=== PATIENT | male | born 1975 | race Caucasian/White ===

== ENCOUNTER 2018-01-23 15:25 | Inpatient (IN) | payer MEDICAID, OTHER ==
[2018-01-23] MEDS: SOD CHLORIDE 0.9% 1,000 ML IV ×2 (16:26→18:33)
[2018-01-23] MEDS: ONDANSETRON 4 MG INJ IV (16:26)
[2018-01-23] MEDS: morphine 4 MG/ML VIAL IV (16:26)
[2018-01-23 16:29] LABS: ADD MAN DIFF? NO
[2018-01-23 16:35] LABS: BASOPHIL # 0.1 10^3/ul (0.0-0.1); BASOPHILS % 0.5 % (0.0-2.0); EOSINOPHILS # 0.1 10^3/ul (0.0-0.5); EOSINOPHILS % 0.8 % (0.0-7.0); HEMATOCRIT 45.2 % (42.0-52.0); HEMOGLOBIN 15.4 g/dl (14.0-18.0); LYMPHOCYTES # 2.2 10^3/ul (0.8-2.9); MEAN CORPUSCULAR HEMOGLOBIN 30.1 pg (29.0-33.0); MEAN CORPUSCULAR HGB CONC 34.1 g/dl (32.0-37.0); MEAN CORPUSCULAR VOLUME 88.5 fl (82.0-101.0); MEAN PLATELET VOLUME 11.7 fl (7.4-10.4); MONOCYTE # 0.5 10^3/ul (0.3-0.9); MONOCYTES % 4.7 % (0.0-11.0); NEUTROPHIL # 7.5 10^3/ul (1.6-7.5); NEUTROPHILS % 72.7 % (39.0-77.0); PLATELET COUNT 205 10^3/UL (140-415); RED BLOOD COUNT 5.11 10^6/ul (4.70-6.10); RED CELL DISTRIBUTION WIDTH 12.1 % (11.5-14.5)
[2018-01-23 16:35] LABS: WHITE BLOOD COUNT 10.3 10^3/ul (4.8-10.8)
[2018-01-23 16:52] LABS: ALANINE AMINOTRANSFERASE 29 IU/L (13-69); ALBUMIN 4.1 g/dl (3.3-4.9); ALBUMIN/GLOBULIN RATIO 1.46; ALKALINE PHOSPHATASE 73 IU/L (42-121); ANION GAP 15 (8-16); ASPARTATE AMINO TRANSFERASE 23 IU/L (15-46); BILIRUBIN,INDIRECT 0.2 mg/dl (0-1.1); BILIRUBIN,TOTAL 0.2 mg/dl (0.2-1.3); BLOOD UREA NITROGEN 11 mg/dl (7-20); CALCIUM 9.5 mg/dl (8.4-10.2); CARBON DIOXIDE 26 mmol/L (21-31); CHLORIDE 107 mmol/L (97-110); CREATININE 0.78 mg/dl (0.61-1.24); GLUCOSE 144 mg/dl (70-220); LIPASE 63 U/L (23-300); POTASSIUM 4.6 mmol/L (3.5-5.1); SODIUM 143 mmol/L (135-144); TOTAL PROTEIN 6.9 g/dl (6.1-8.1)
[2018-01-23] MEDS: HYDROmorphONE 2 MG/ML SYG IV (17:42)
[2018-01-23] MEDS ORDERED: NACL 0.9% 3 ML SYG IV (20:00)
[2018-01-23] MEDS ORDERED: morphine 2 MG INJ IV (20:00)
[2018-01-23] MEDS ORDERED: ONDANSETRON 4 MG INJ IV (20:30)
[2018-01-23] MEDS: DEXTROSE 5%-0.45% NACL 1,000 ML IV (21:19)
[2018-01-24] MEDS: DEXTROSE 5%-0.45% NACL 1,000 ML IV ×3 (03:41→16:00)
[2018-01-24 05:12] LABS: ADD MAN DIFF? NO
[2018-01-24 05:28] LABS: BASOPHILS % 0.4 % (0.0-2.0); EOSINOPHILS # 0.2 10^3/ul (0.0-0.5); EOSINOPHILS % 1.5 % (0.0-7.0); HEMATOCRIT 44.1 % (42.0-52.0); HEMOGLOBIN 14.9 g/dl (14.0-18.0); LYMPHOCYTES # 3.4 10^3/ul (0.8-2.9); LYMPHOCYTES % 34.8 % (15.0-51.0); MEAN CORPUSCULAR HEMOGLOBIN 30.2 pg (29.0-33.0); MEAN CORPUSCULAR HGB CONC 33.8 g/dl (32.0-37.0); MEAN CORPUSCULAR VOLUME 89.5 fl (82.0-101.0); MEAN PLATELET VOLUME 11.6 fl (7.4-10.4); MONOCYTE # 0.5 10^3/ul (0.3-0.9); MONOCYTES % 5.5 % (0.0-11.0); NEUTROPHIL # 5.6 10^3/ul (1.6-7.5); NEUTROPHILS % 57.4 % (39.0-77.0); PLATELET COUNT 192 10^3/UL (140-415); RED BLOOD COUNT 4.93 10^6/ul (4.70-6.10); RED CELL DISTRIBUTION WIDTH 12.3 % (11.5-14.5)
[2018-01-24 05:28] LABS: WHITE BLOOD COUNT 9.8 10^3/ul (4.8-10.8)
[2018-01-24 05:57] LABS: ALANINE AMINOTRANSFERASE 34 IU/L (13-69); ALBUMIN 3.6 g/dl (3.3-4.9); ALBUMIN/GLOBULIN RATIO 1.16; ALKALINE PHOSPHATASE 62 IU/L (42-121); ANION GAP 11 (8-16); ASPARTATE AMINO TRANSFERASE 25 IU/L (15-46); BILIRUBIN,INDIRECT 0.5 mg/dl (0-1.1); BILIRUBIN,TOTAL 0.5 mg/dl (0.2-1.3); BLOOD UREA NITROGEN 8 mg/dl (7-20); CALCIUM 8.8 mg/dl (8.4-10.2); CARBON DIOXIDE 30 mmol/L (21-31); CHLORIDE 106 mmol/L (97-110); CREATININE 0.71 mg/dl (0.61-1.24); GLUCOSE 101 mg/dl (70-220); MAGNESIUM 1.6 mg/dl (1.7-2.5); SODIUM 143 mmol/L (135-144); TOTAL PROTEIN 6.7 g/dl (6.1-8.1)
[2018-01-24] MEDS: PANTOPRAZOLE 40 MG INJ IV (06:19)
[2018-01-24] MEDS ORDERED: CEFAZOLIN 1 GM INJ (07:00)
[2018-01-24] MEDS ORDERED: ROCURONIUM 50 MG INJ (07:00)
[2018-01-24] MEDS ORDERED: PROPOFOL 20 ML (10:45)
[2018-01-24] MEDS ORDERED: MIDAZOLAM 1 MG/ML 2 ML INJ IV (11:00)
[2018-01-24] MEDS ORDERED: MEPERIDINE 25 MG INJ IV (11:00)
[2018-01-24] MEDS ORDERED: EPHEDrine SULFATE 50 MG/5 ML SYG IV (11:00)
[2018-01-24] MEDS ORDERED: hydrALAzine 20 MG INJ IV (11:00)
[2018-01-24] MEDS ORDERED: LABETALOL HCL 20MG INJ IV (11:00)
[2018-01-24] MEDS ORDERED: OXYCODONE/ACETAMINOPHEN (5/325) TAB PO ×2 (11:00)
[2018-01-24] MEDS ORDERED: DIPHENHYDRAMINE 50 MG INJ IV (11:00)
[2018-01-24] MEDS ORDERED: ALBUTEROL 0.083% (NEB) 2.5 MG/3 ML AMP HHN (11:00)
[2018-01-24] MEDS ORDERED: HYDROmorphONE 1 MG/5 ML IV SYRINGE IV ×2 (11:00)
[2018-01-24] MEDS ORDERED: FENTAnyl 50 MCG/ML VIAL IV ×3 (11:00)
[2018-01-24] MEDS ORDERED: ROPIVACAINE 0.5 % 30 ML VIAL (11:23)
[2018-01-24] MEDS: BUPIVACAINE 0.25% (MPF) 30 ML INJ (11:43)
[2018-01-24] MEDS: LIDOCAINE 1%/EPI 30 ML INJ (11:43)
[2018-01-24] MEDS ORDERED: ONDANSETRON 4 MG INJ (11:52)
[2018-01-24] MEDS ORDERED: DEXAMETHASONE 4 MG/ML 1 ML INJ (11:52)
[2018-01-24] MEDS ORDERED: POLYMYXIN/BACITRACIN 1L IRRIG (11:58)
[2018-01-24] MEDS ORDERED: GLYCOPYRROLATE 0.4 MG INJ (12:21)
[2018-01-24] MEDS ORDERED: NEOSTIGMINE 3 MG/3 ML SYRINGE (12:21)
[2018-01-24] MEDS ORDERED: HYDROCODONE/APAP (5/325) TAB PO (12:30)
[2018-01-24] MEDS ORDERED: IBUPROFEN 600 MG TAB PO (12:30)
[2018-01-24] MEDS: KETOROLAC 30 MG INJ IV (12:42)
[2018-01-24] MEDS: HYDROmorphONE 1 MG/5 ML IV SYRINGE IV (12:42)
[2018-01-24] MEDS: ONDANSETRON 4 MG INJ IV (12:50)
[2018-01-24] MEDS: METOCLOPRAMIDE 10 MG INJ IV (12:56)
[2018-01-24] MEDS: HYDROCODONE/APAP (5/325) TAB PO (17:02)
== END 2018-01-24 21:00 | disposition home or self-care (01) | DRG 355 ==
LOC: E/R 15:25 → MS1 18:40
PROC: 0WUF4JZ Supplement Abdominal Wall with Synthetic Substitute, Percutaneous Endoscopic Approach (ICD-10-PCS; principal; 2018-01-24 08:30)
DX: K43.9 Ventral hernia without obstruction or gangrene (principal); E66.9 Obesity, unspecified; Z68.36 Body mass index [BMI] 36.0-36.9, adult
CPT/HCPCS: 36415; 74176; 80053; 83605; 83690; 83735; 85025; 88302; 93005; 96374; 96375; 99285-25